=== PATIENT | female | born 1940 | race Caucasian/White ===

== ENCOUNTER 2019-05-02 10:30 | Outpatient (CLI) | payer MEDICARE, SELFPAY ==
--- NOTE | 2019-05-02 10:43 | XR_ITS ---
WS: [id number] Bilateral hips, AP and frog leg views, 05/02/2019 Clinical Data: HIP PAIN Comparison: Right hip, 06/03/2010 Findings: Both hips show no fractures or dislocations. No joint space narrowing, erosion, sclerosis or cyst for mation is seen of the hips. There are surgical clips in the soft tissues of the medial proximal left thigh. The SI joints and pubic symphysis are unremarkable. There is a large amount of fecal material in the distal colon. XR/XR hip BI 2V wo/w pel [id number] Impression: Negative bilateral hips.
== END 2019-05-02 10:31 | disposition home or self-care (01) ==
LOC: RAD 10:39
PROVIDERS: Family Provider Family Medicine; PCP Family Medicine; Visit Provider Family Medicine
DX: M25.552 Pain in left hip (principal); M25.551 Pain in right hip
CPT/HCPCS: 73521

== ENCOUNTER 2019-06-28 14:14 | Emergency (ER) | payer MEDICARE, SELFPAY ==
[2019-06-28] VITALS (7 sets, daily range): BP systolic 142–204; BP diastolic 74–90; PULSE 70–105; RESP 16–18; TEMP 36.8; O2SAT 96–98; BMI 30.9
--- NOTE | 2019-06-28 14:35 | ED_ITS ---
HPI - Psych General: Chief Complaint: Psychiatric Symptoms Stated Complaint: SI Time Seen by Provider: 06/28/19 14:15 Source: patient and family Mode of arrival: ambulatory Limitations: no limitations History of Present Illness: HPI Narrative: 78-year-old female history dementia brought by family after she had became very angry today and had made multiple suicidal statements. Patient still is upset here. She denies any worsening or improving factors. She had no previous suicide attempt in the past. Recently started on Xanax for some anxiety. complaint: suicidal ideation Onset (ago): hour(s) Relieving factors: none Exacerbating factors: none Associated symptoms: Reports depression Review of Systems Const: Denies: fever, chills, body aches or change in appetite Eyes: Denies: blurry vision or eye discomfort ENMT: Denies: throat pain or dental pain Card: Denies: chest pain Resp: Denies: shortness of breath GI: Denies: abdominal pain, nausea, vomiting or diarrhea : Denies: painful urination Musc: Denies: neck pain or back pain Skin/Breast: Denies: rash Neuro: Denies: headache Psych: Reports: depression Feliberto/Lymph: Denies: easy bruising All/Imm: Denies: hives PFSH ED PFSH: Medical History (Updated 06/28/19 @ 14:31 by Pamela Dowd MD) Atherosclerotic heart disease of [place] coronary artery with other forms of angina pectoris CAD (coronary artery disease) Carotid stenosis CHF (congestive heart failure) Chronic anemia Diabetes Gout Hypertension LEEANNA (obstructive sleep apnea) Osteoporosis Pulmonary hypertension Restless leg syndrome Surgical History (Updated 05/28/19 @ 15:15 by Edgar Abrams MD) H/O aortic valve replacement History of cataract removal with insertion of prosthetic lens History of cholecystectomy History of repair of rotator cuff Hx of CABG S/P AVR (aortic valve replacement) Stented coronary artery Social History Smoking and tobacco status: current every day smoker Alcohol intake: never Physical Exam Const: COMMON NORMALS: no apparent distress, oriented x3 and healthy appearing HENMT: COMMON NORMALS: normocephalic and head/scalp atraumatic HEAD & SCALP: normocephalic and atraumatic Eye: COMMON NORMALS: PERRL and EOMs intact bilaterally PUPIL: Yes PERRL Neck/C-Spine: COMMON NORMALS: full ROM and supple Chest: COMMONS NORMALS: inspection of chest normal and palpation of chest normal Resp: COMMON NORMALS: normal respiratory effort, no retractions, no use of accessory muscles and clear to auscultation bilaterally AUSCULTATION: clear to auscultation bilaterally Cardio: COMMON NORMALS: regular rate, regular rhythm and no murmurs RATE: regular rate RHYTHM: regular rhythm GI: COMMON NORMALS: normal to inspection, nondistended, normoactive bowel sounds, soft to palpation, non-tender and no masses PALPATION: Yes soft Extremity: COMMON NORMALS: normal to inspection and full ROM Neuro: COMMON NORMALS: oriented x3, moves all extremities and no focal motor deficits Psych: COMMON NORMALS: mental status grossly normal and cooperative THOUGHT CONTENT: Yes suicidality Skin: COMMON NORMALS: no rashes or lesions noted and no wounds GENERAL SKIN EXAM: no rashes or lesions noted MDM - Psych MDM Narrative: Medical decision making narrative: Patient presents here with suicidal ideations along with depression. Patient is medically cleared here and accepted at [facility]. Patient's been stable here and will transfer there. Lab Data: Labs: Lab Results 06/28/19 06/28/19 06/28/19 Range/Units 14:41 14:41 15:02 WBC 5.8 (4.0-10.0) 10^3/ uL RBC 4.41 (4.1-5.3) 10^6/u L Hgb 10.3 L (11.5-15.3) g/dL Hct 35.1 L (37.0-47.0) % MCV 79.6 L (81-99) fL MCH 23.4 L (28.0-34.0) pg MCHC 29.3 L (30.0-36.0) g/dL RDW 20.5 H (12.1-15.1) % Plt Count 266 (130-400) 10^3/c mm MPV 10.7 H (7.4-10.4) fL Neut % (Auto) 74.0 % Lymph % (Auto) 16.7 % Bleck[place] % (Auto) 6.3 % Eos % (Auto) 2.3 % Baso % (Auto) 0.5 % Neut # (Auto) 4.3 (1.8-7.7) 10^3/u L Lymph # (Auto) 1.0 (0.8-4.8) 10^3/u L [place] # (Auto) 0.4 (0.2-0.9) 10^3/u L Eos # (Auto) 0.1 (0.0-0.8) 10^3/u L Baso # (Auto) 0.0 (0.0-0.1) 10^3/u L Nucleated RBC % (a uto) 0 % Nucleated RBCs # 0.0 /100WBC Sodium 141 (136-145) mmol/L Potassium 3.1 L (3.5-5.1) mmol/L Chloride 99 (98-107) mmol/L Carbon Dioxide 27 (22-29) mmol/L Anion Gap 18.1 (5-19) BUN 28 H (8-23) mg/dL Creatinine 1.6 H (0.5-0.9) mg/dL Glucose 315 H (65-115) mg/dL Calculated Osmolal ity 301 H (285-295) mOsm/k g Calcium 9.8 (8.5-10.5) mg/dL Total Bilirubin 0.2 (0.15-1.2) mg/dL AST 29 (0-32) U/L ALT 16 (0-33) U/L Alkaline Phosphata se 107 H (35-105) IU/L Total Protein 8.0 (6.6-8.7) g/dL Albumin 4.3 (3.5-5.2) g/dL Globulin 3.7 (1.3-4.6) g/dL Urine Color Yellow (Yellow) Urine Appearance Clear (CLEAR) Urine pH 7.0 (5-7) Ur Specific Gravit y 1.005 (1.005-1.030) Urine Protein Neg (Negative) Urine Glucose (UA) 1+ (Normal) Urine Ketones Negative (Negative) Urine Blood Trace H (Negative) Urine Nitrate Negative (Negative) Urine Bilirubin Neg (NEGATIVE) Urine Urobilinogen Norm (Negative) mg/dL Ur Leukocyte Anushka ase Negative (Negative) Urine RBC 0-4 H (0-2) /hpf Urine WBC None (0-5) /hpf Ur Squamous Epith Cells 10-15 H (0-5) Urine Bacteria 1+ H (NONE) Urine Mucus Trace Salicylates < 0.3 L (3-10) mg/dL Urine Opiates Scre en (Negative) ng/mL Acetaminophen < 5.0 L (10-30) ug/mL Ur Barbiturates Sc reen (Negative) ng/mL Ur Phencyclidine S crn (Negative) ng/mL Ur Amphetamines Sc reen (Negative) ng/mL U Benzodiazepines Scrn (Negative) ng/mL Urine Cocaine Scre en (Negative) ng/mL U Marijuana (THC) Screen (Negative) ng/mL Ethyl Alcohol < 10 (0-10) mg/dL 06/28/19 Range/Units 15:02 WBC (4.0-10.0) 10^3/ uL RBC (4.1-5.3) 10^6/u L Hgb (11.5-15.3) g/dL Hct (37.0-47.0) % MCV (81-99) fL MCH (28.0-34.0) pg MCHC (30.0-36.0) g/dL RDW (12.1-15.1) % Plt Count (130-400) 10^3/c mm MPV (7.4-10.4) fL Neut % (Auto) % Lymph % (Auto) % [place] % (Auto) % Eos % (Auto) % Baso % (Auto) % Neut # (Auto) (1.8-7.7) 10^3/u L Lymph # (Auto) (0.8-4.8) 10^3/u L [place] # (Auto) (0.2-0.9) 10^3/u L Eos # (Auto) (0.0-0.8) 10^3/u L Baso # (Auto) (0.0-0.1) 10^3/u L Nucleated RBC % (a uto) % Nucleated RBCs # /100WBC Sodium (136-145) mmol/L Potassium (3.5-5.1) mmol/L Chloride (98-107) mmol/L Carbon Dioxide (22-29) mmol/L Anion Gap (5-19) BUN (8-23) mg/dL Creatinine (0.5-0.9) mg/dL Glucose (65-115) mg/dL Calculated Osmolal ity (285-295) mOsm/k g Calcium (8.5-10.5) mg/dL Total Bilirubin (0.15-1.2) mg/dL AST (0-32) U/L ALT (0-33) U/L Alkaline Phosphata se (35-105) IU/L Total Protein (6.6-8.7) g/dL Albumin (3.5-5.2) g/dL Globulin (1.3-4.6) g/dL Urine Color (Yellow) Urine Appearance (CLEAR) Urine pH (5-7) Ur Specific Gravit y (1.005-1.030) Urine Protein (Negative) Urine Glucose (UA) (Normal) Urine Ketones (Negative) Urine Blood (Negative) Urine Nitrate (Negative) Urine Bilirubin (NEGATIVE) Urine Urobilinogen (Negative) mg/dL Ur Leukocyte Anushka ase (Negative) Urine RBC (0-2) /hpf Urine WBC (0-5) /hpf Ur Squamous Epith Cells (0-5) Urine Bacteria (NONE) Urine Mucus Salicylates (3-10) mg/dL Urine Opiates Scre en Positive H (Negative) ng/mL Acetaminophen (10-30) ug/mL Ur Barbiturates Sc reen Negative (Negative) ng/mL Ur Phencyclidine S crn Negative (Negative) ng/mL Ur Amphetamines Sc reen Negative (Negative) ng/mL U Benzodiazepines Scrn Positive H (Negative) ng/mL Urine Cocaine Scre en Negative (Negative) ng/mL U Marijuana (THC) Screen Negative (Negative) ng/mL Ethyl Alcohol (0-10) mg/dL Discharge Plan Discharge Patient Disposition: Xfer Other Clinical Impression: Suicidal ideation Condition: Stable Referrals: Mic Dailey MD [Primary Care Provider] - Coding Level of Care Code ED Crisis Therapist for g Fwd Exam Comprehensive
[2019-06-28] MEDS: LORazepam 1 mg Tablet PO (14:44)
[2019-06-28 15:14] LABS: Basophils % 0.5 %; Eosinophils # 0.1 10^3/uL (0.0-0.8); Eosinophils % 2.3 %; Hematocrit 35.1 % (37.0-47.0); Hemoglobin 10.3 g/dL (11.5-15.3); Lymphocytes % 16.7 %; Mean Corpuscular HGB Conc 29.3 g/dL (30.0-36.0); Mean Corpuscular Hemoglobin 23.4 pg (28.0-34.0); Mean Corpuscular Volume 79.6 fL (81-99); Mean Platelet Volume 10.7 fL (7.4-10.4); Monocytes # 0.4 10^3/uL (0.2-0.9); Monocytes % 6.3 %; Neutrophils # 4.3 10^3/uL (1.8-7.7); Nucleated Red Blood Cells % 0 %; Platelet Count 266 10^3/cmm (130-400); Red Blood Count 4.41 10^6/uL (4.1-5.3); Red Cell Distribution Width 20.5 % (12.1-15.1); White Blood Count 5.8 10^3/uL (4.0-10.0)
[2019-06-28] MEDS: cloNIDine 0.1 mg Tablet PO (15:22)
[2019-06-28 15:27] LABS: Urine Appearance Clear (CLEAR); Urine Color Yellow (Yellow)
[2019-06-28 15:28] LABS: Add Urine Microscopic? YES; Bilirubin Urine Neg (NEGATIVE); Blood Urine Trace (Negative); Glucose Urine UA 1+ (Normal); Ketones Urine Negative (Negative); Leukocyte Esterase Urine Negative (Negative); Nitrate Urine Negative (Negative); Protein Urine Neg (Negative); Specific Gravity, Urine 1.005 (1.005-1.030); Urobilinogen Urine Norm (Negative)
[2019-06-28 15:30] LABS: Alanine Aminotransferase 16 U/L (0-33); Albumin Level 4.3 g/dL (3.5-5.2); Alkaline Phosphatase 107 IU/L (35-105); Anion Gap 18.1 (5-19); Aspartate Amino Transferase 29 U/L (0-32); Blood Urea Nitrogen 28 mg/dL (8-23); Calcium 9.8 mg/dL (8.5-10.5); Carbon Dioxide 27 mmol/L (22-29); Chloride 99 mmol/L (98-107); Globulin 3.7 g/dL (1.3-4.6); Glucose 315 mg/dL (65-115); Osmolality Calculated 301 mOsm/kg (285-295); Potassium 3.1 mmol/L (3.5-5.1); Sodium 141 mmol/L (136-145); Total Bilirubin 0.2 mg/dL (0.15-1.2)
[2019-06-28 15:32] LABS: Acetaminophen < 5.0 ug/mL (10-30); Alcohol Level < 10 mg/dL (0-10); Salicylate < 0.3 mg/dL (3-10)
[2019-06-28 15:38] LABS: Add Urine Culture? No; Bacteria Urine 1+; Mucus Urine TRACE; RBC Urine 0-4 /hpf (0-2)
[2019-06-28 15:47] LABS: Amphetamines Screen Urine Negative (Negative); Barbiturates Screen Urine Negative (Negative); Benzodiazepines Screen Urine Positive (Negative); Cocaine Screen Urine Negative (Negative); Opiate Screen Urine Positive (Negative); PCP Screen Urine Negative (Negative); THC Screen Urine Negative (Negative)
--- NOTE | 2019-06-28 18:00 | ECG_ITS ---
Measurements Intervals [place] Rate: 75 P: 107 TN: 176 QRS: 20 QRSD: 92 T: 103 QT: 420 QTc: [address] DEVIATION AND MODERATE T-WAVE ABNORMALITY, CONSIDER LATERAL ISCHEMIA [-0.1+ mV T WAVE IN I/aVL/V5/V6] Compared to ECG 11/24/2018 23:20:17 T-wave abnormality now present Possible ischemia now present Electronically Signed On 06-28-2019 20:23:14 CDT by Rose Rios M.D. [id number]
--- NOTE | 2019-06-28 18:11 | XRR_ITS ---
PROCEDURE INFORMATION: Exam: XR Chest, 1 View Exam date and time: 06/28/2019 6:24 PM Age: 78 years old Clinical indication: Screening exam; Other screening; Prior surgery; Surgery date: 6+ months; Surgery type: Gb, cabg; Additional info: Psych TECHNIQUE: Imaging protocol: XR of the chest Views: 1 view. COMPARISON: CR Chest 1 [place] [id number] 11/24/2018 4:26 PM FINDINGS: Lungs: Parenchymal scarring noted in the lingula and right lower lobe. No consolidation. Pleural space: No pleural effusion. No pneumothorax. Heart/Mediastinum: Previous CABG. Bones/joints: Previous median sternotomy. Postsurgical changes of the right humerus. XR/XR chest 1V portable [id number] IMPRESSION: No acute findings.
--- NOTE | 2019-06-28 19:16 | PC.NURSE ---
Patient is sleeping in bed.
[2019-06-28] MEDS: sodium chloride 0.9% 1,000 ML 999 ML IV (21:20)
[2019-06-28] MEDS: hyDRALAzine 20 mg/mL INJ 1 mL 10 MG IVP (21:20)
[2019-06-28] MEDS: insulin regular-human 100 units/1 mL 5 UNIT IVP (21:22)
--- NOTE | 2019-06-28 22:35 | PC.NURSE ---
Ems here for transfer to [place], report given to ems crew. Patient left in stable condition in care of EMS.
[2019-06-29 01:32] LABS: Glucose Point of Care 337 mg/dL (70-110)
== END 2019-06-28 22:43 | disposition other institution (70) ==
LOC: ER 14:40
PROVIDERS: Emergency Provider Emergency Medicine; Family Provider Family Medicine; PCP Family Medicine
DX: R45.851 Suicidal ideations (principal); I25.118 Atherosclerotic heart disease of native coronary artery with other forms of angina pectoris; I11.0 Hypertensive heart disease with heart failure; I50.9 Heart failure, unspecified; E11.9 Type 2 diabetes mellitus without complications; D64.9 Anemia, unspecified; I27.20 Pulmonary hypertension, unspecified; Z95.1 Presence of aortocoronary bypass graft; Z95.2 Presence of prosthetic heart valve; F17.200 Nicotine dependence, unspecified, uncomplicated
CPT/HCPCS: 12345; 36415; 36416; 71045; 80053; 80306; 80307; 81001; 82962; 85025; 93005; 96360; 96372; 96374; 96375; 99285; J0360; J1815; J7030

== ENCOUNTER 2019-09-09 09:09 | Emergency (ER) | payer MEDICARE, SELFPAY ==
[2019-09-09] VITALS (7 sets, daily range): BP systolic 144–200; BP diastolic 69–100; PULSE 70–73; RESP 16–30; TEMP 36.6; O2SAT 93–100; BMI 31.8
[2019-09-09] MEDS: ondansetron 2 mg/ML SDV 2 mL 4 MG IVP (09:30)
--- NOTE | 2019-09-09 09:30 | XR_ITS ---
WS: [id number] XR chest 1V portable [id number] REASON FOR EXAM: dyspnea/cough FINDINGS: Bilateral pleural effusion is now seen. There is also fluid seen in the minor fissure on th e right. The heart is large. There is coronary bypass changes seen. There is interstitial and alveolar fluid seen bilaterally. XR/XR chest 1V portable [id number] IMPRESSION: Congestive heart failure.
--- NOTE | 2019-09-09 09:30 | ECG_ITS ---
[facility] ED Test Date: 2019-09-09 Pat Name: Karolina Combs Department: Room: Gender: 1 Corporate Safety Coordinator: : 1940 Requested By: Alden Anne Order Number: [id number] K[place] MD: Edgar Abrams M.D. Measurements Intervals [place] Rate: 69 P: [place]: 0 QRS: 25 QRSD: 86 T: 96 QT: 367 QTc: 395 Interpretive Statements Possible ATRIAL FIBRILLATION MODERATE T-WAVE ABNORMALITY, CONSIDER ANTERIOR ISCHEMIA [-0.1+ mV T WAVE IN V3/V4] Compared to ECG 06/28/2019 18:14:02 Sinus rhythm no longer present T-wave abnormality still present Possible ischemia still present Electronically Signed On 09-10-2019 19:14:17 CDT by Edgar Abrams M.D. [id number]
--- NOTE | 2019-09-09 09:33 | W.ED.SOB ---
HPI - SOB/Dyspnea General: Chief Complaint: Fever Stated Complaint: SOB Time Seen by Provider: 09/09/19 09:30 History of Present Illness: HPI Narrative: 79-year-old female presents emergency room with shortness of breath chest tightness she has had this for the last 2 days. She has multiple family members who have tested positive for COVID-19 she lives with 1 of them. They have not been wearing masks all the time she herself has not been confirmed by testing yet we are presuming based on her history she does indeed have COVID-19. She is not had any fever she has had increased chest congestion unfortunately she has multiple comorbid factors including diabetes mellitus coronary artery disease congestive heart failure aortic stenosis and EF of 45% interstitial pulmonary fibrosis hyperlipidemia hypertension gout and osteoporosis of significant Cerner concern is her pulmonary hypertension and interstitial fibrosis. MD elicited complaint: shortness of breath Pertinent past history: COPD, congestive heart failure and other (Pulmonary interstitial fibrosis) Onset (ago): day(s) (2) Timing: constant Severity: moderate Exacerbating factors: exertion, movement and coughing Relieving factors: oxygen and rest Known history of: COPD, congestive heart failure and other (Pulmonary fibrosis and pulmonary hypertension) Associated symptoms: Reports chest congestion, chest pain, cough, nausea and orthopnea; Deny fever(s) Treatment prior to arrival: none Review of Systems Const: Denies: fever(s), chills, body aches, change in appetite, fatigue or malaise ENMT: Denies: throat pain, ear or mastoid pain, nasal discharge or nasal congestion Card: Reports: chest pain and orthopnea Resp: Reports: chest congestion GI: Reports: nausea : Denies: flank pain, difficulty voiding, dysuria, urinary frequency or urinary urgency Skin/Breast: Denies: rash or pruritus PFS ED PFSH: Medical History (Updated 09/09/19 @ 11:12 by Alden Pimentel DO) Atherosclerotic heart disease of [place] coronary artery with other forms of angina pectoris CAD (coronary artery disease) Carotid stenosis CHF (congestive heart failure) Chronic anemia Diabetes Gout Hypertension LEEANNA (obstructive sleep apnea) Osteoporosis Pulmonary hypertension Restless leg syndrome Surgical History (Updated 05/28/19 @ 15:15 by Edgar Abrams MD) H/O aortic valve replacement History of cataract removal with insertion of prosthetic lens History of cholecystectomy History of repair of rotator cuff Hx of CABG S/P AVR (aortic valve replacement) Stented coronary artery Social History Smoking and tobacco status: former smoker Alcohol intake: never Physical Exam Const: COMMON NORMALS: no acute distress GENERAL APPEARANCE: cooperative and comfortable ORIENTATION/CONSCIOUSNESS: Yes awake, Yes oriented to person, Yes oriented to place and Yes oriented to time HENMT: COMMON NORMALS: normocephalic, atraumatic, hearing grossly normal bilaterally, external ears normal, EAC's normal, TM's normal bilaterally, Normal nasal mucous membranes and turbinates present, moist oral mucous membranes and oropharynx normal HEAD & SCALP: normocephalic and atraumatic NOSE: Normal nasal mucous membranes and turbinates present EXTERNAL EAR: Yes external ears normal EXTERNAL AUDITORY CANAL: EAC's normal TYMPANIC MEMBRANE: TM's normal bilaterally Eye: COMMON NORMALS: Equal, round and reactive pupils present, EOMs intact bilaterally, conjunctivae normal and no scleral icterus CONJUNCTIVA: Yes conjunctivae normal PUPIL: Yes Equal, round and reactive pupils present Neck/C-Spine: COMMON NORMALS: full ROM, no lymphadenopathy, supple and no JVD Lymph: LYMPHATIC: no lymphadenopathy noted and no lymphedema noted Resp: COMMON NORMALS: normal respiratory effort EFFORT & INSPECTION: Yes tachypneic AUSCULTATION: rales bilateral at the base, wheezes expiratory wheezes and diminished lung sounds on the right and on the left Cardio: COMMON NORMALS: no JVD, regular rate, regular rhythm and No murmurs present (Cardio) RATE: regular rate RHYTHM: regular rhythm GI: COMMON NORMALS: Soft to palpation and No hepatosplenomegaly present AUSCULTATION: Yes normoactive bowel sounds PALPATION: Yes Soft to palpation, No Tenderness to palpation present (GI), No Guarding due to palpation present (GI) and Yes No hepatosplenomegaly present Extremity: COMMON NORMALS: normal to inspection, capillary refill normal, no clubbing, cyanosis or edema, no calf tenderness and no pedal edema Neuro: SENSORIUM/ORIENTATION: Yes oriented to person, Yes oriented to place and Yes oriented to time Skin: COMMON NORMALS: no rashes or lesions noted GENERAL SKIN EXAM: no rashes or lesions noted Course Vital Signs: Vital signs: Vital Signs Temperature 97.8 F 06/16/20 10:27 Pulse Rate 70 09/09/19 13:20 Respiratory Rate 24 H 09/09/19 13:20 Blood Pressure 189/89 09/09/19 13:20 Pulse Oximetry 100 09/09/19 13:20 MDM - SOB/Dyspnea MDM Narrative: Medical decision making narrative: Patient be transferred ER to ER to [facility]. She most certainly has COVID at this point she was living with 2 known positives without taking any significant precautions. Reviewing her chest x-ray it looks like she already has advanced disease and I think over the next several days she will decline precipitously. While we would be able to provide ventilation support at our facility there are specialized treatments that are not available here such as her domes of urine convalescent plasma therapy. In addition [facility] has a COVID unit that is more prepared to manage this patient on a long-term basis given her multiple comorbid conditions including congestive heart failure pulmonary fibrosis and pulmonary hypertension I think her course will be exceedingly difficult and complicated and she would benefit from a tertiary care center. Discussed with Dr. Reyna and we both agree. Lab Data: Attestation: I reviewed the patient's lab results. Labs: Lab Results 09/09/19 09/09/19 09/09/19 Range/Units 09:20 09:35 09:35 WBC 9.0 (4.0-10.0) 10^3/ uL RBC 3.19 L (4.1-5.3) 10^6/u L Hgb 8.0 L (11.5-15.3) g/dL Hct 27.2 L (37.0-47.0) % MCV 85.3 (81-99) fL MCH 25.1 L (28.0-34.0) pg MCHC 29.4 L (30.0-36.0) g/dL RDW 18.6 H (12.1-15.1) % Plt Count 362 (130-400) 10^3/c mm MPV 10.4 (7.4-10.4) fL Neut % (Auto) 80.9 % Lymph % (Auto) 8.9 % [place] % (Auto) 8.1 % Eos % (Auto) 1.2 % Baso % (Auto) 0.6 % Neut # (Auto) 7.3 (1.8-7.7) 10^3/u L Lymph # (Auto) 0.8 (0.8-4.8) 10^3/u L [place] # (Auto) 0.7 (0.2-0.9) 10^3/u L Eos # (Auto) 0.1 (0.0-0.8) 10^3/u L Baso # (Auto) 0.1 (0.0-0.1) 10^3/u L Nucleated RBC % (a uto) 0 % Nucleated RBCs # 0.0 /100WBC PT 15.10 H (10.5-13.3) SECO NDS INR 1.15 (0.8-1.2) APTT 32.9 (23.9-36.7) SECO NDS Fibrinogen 609 H (184-529) mg/dL D-Dimer 0.85 H (0-0.59) ug/mIFE U Specimen Type Arterial Sample Site Radial, left ABG pH 7.53 H (7.35-7.45) ABG pCO2 40.7 (35-45) mmHg ABG pO2 51.7 L (80.0-100.0) mmH g ABG HCO3 33.9 H (22-26) mmol/L ABG O2 Saturation 86.3 ABG Base Excess 10.2 H (-2.0-2.0) mmol/ L Ascencion Test Pos A-a O2 Gradient 48.2 H (5-10) mmHg Hematocrit 25.8 L (37-47) % Hgb O2 Saturation 84.0 L (95-100) % Carboxyhemoglobin 1.8 (0.4-20.1) %THgb Methemoglobin 1.0 (0.4-1.5) % Total Hemoglobin 8.4 L (12-16) g/dL Sodium 142.0 (131-143) mmol/L Potassium 3.1 L (3.5-5.0) mmol/L Glucose 93.0 (70-115) mg/dL Ionized Calcium 1.1 (1.1-1.4) mmol/L O2 Delivery Device Room air FiO2 21.0 % Environmental Projects Advisor ID cak Chloride (98-107) mmol/L Carbon Dioxide (22-29) mmol/L Anion Gap (5-19) BUN (8-23) mg/dL Creatinine (0.5-0.9) mg/dL Calculated Osmolal ity (285-295) mOsm/k g Lactic Acid (0.5-2.2) mmol/L Lactate (0.5-2.2) mmol/L Calcium (8.5-10.5) mg/dL Magnesium (1.7-2.3) mg/dL Ferritin (15-150) ng/mL Total Bilirubin (0.15-1.2) mg/dL AST (0-32) U/L ALT (0-33) U/L Alkaline Phosphata se (35-105) IU/L Lactate Dehydrogen ase (135-214) U/L Creatine Kinase (26-192) U/L C-Reactive Protein (0.0-4.9) mg/L NT-Pro-B Natriuret Pep (0-450) pg/mL Total Protein (6.6-8.7) g/dL Albumin (3.5-5.2) g/dL Globulin (1.3-4.6) g/dL Urine Color (Yellow) Urine Appearance (CLEAR) Urine pH (5-7) Ur Specific Gravit y (1.005-1.030) Urine Protein (Negative) Urine Glucose (UA) (Normal) Urine Ketones (Negative) Urine Blood (Negative) Urine Nitrate (Negative) Urine Bilirubin (NEGATIVE) Urine Urobilinogen (Negative) mg/dL Ur Leukocyte Anushka ase (Negative) Urine RBC (0-2) /hpf Urine WBC (0-5) /hpf Ur Squamous Epith Cells (0-5) Urine Bacteria (NONE) Hyaline Casts Nasal/Oral COVID-1 9 PCR Influenza Type A A g (Negative) Influenza Type B A g (Negative) 09/09/19 09/09/19 09/09/19 Range/Units 09:35 09:35 09:54 WBC (4.0-10.0) 10^3/ uL RBC (4.1-5.3) 10^6/u L Hgb (11.5-15.3) g/dL Hct (37.0-47.0) % MCV (81-99) fL MCH (28.0-34.0) pg MCHC (30.0-36.0) g/dL RDW (12.1-15.1) % Plt Count (130-400) 10^3/c mm MPV (7.4-10.4) fL Neut % (Auto) % Lymph % (Auto) % [place] % (Auto) % Eos % (Auto) % Baso % (Auto) % Neut # (Auto) (1.8-7.7) 10^3/u L Lymph # (Auto) (0.8-4.8) 10^3/u L [place] # (Auto) (0.2-0.9) 10^3/u L Eos # (Auto) (0.0-0.8) 10^3/u L Baso # (Auto) (0.0-0.1) 10^3/u L Nucleated RBC % (a uto) % Nucleated RBCs # /100WBC PT (10.5-13.3) SECO NDS INR (0.8-1.2) APTT (23.9-36.7) SECO NDS Fibrinogen (184-529) mg/dL D-Dimer (0-0.59) ug/mIFE U Specimen Type Sample Site ABG pH (7.35-7.45) ABG pCO2 (35-45) mmHg ABG pO2 (80.0-100.0) mmH g ABG HCO3 (22-26) mmol/L ABG O2 Saturation ABG Base Excess (-2.0-2.0) mmol/ L Ascencion Test A-a O2 Gradient (5-10) mmHg Hematocrit (37-47) % Hgb O2 Saturation (95-100) % Carboxyhemoglobin (0.4-20.1) %THgb Methemoglobin (0.4-1.5) % Total Hemoglobin (12-16) g/dL Sodium 142 (131-143) mmol/L Potassium 3.4 L (3.5-5.0) mmol/L Glucose 99 (70-115) mg/dL Ionized Calcium (1.1-1.4) mmol/L O2 Delivery Device FiO2 % Environmental Projects Advisor ID Chloride 97 L (98-107) mmol/L Carbon Dioxide 33 H (22-29) mmol/L Anion Gap 15.4 (5-19) BUN 25 H (8-23) mg/dL Creatinine 1.3 H (0.5-0.9) mg/dL Calculated Osmolal ity 291 (285-295) mOsm/k g Lactic Acid 0.9 (0.5-2.2) mmol/L Lactate 0.9 (0.5-2.2) mmol/L Calcium 9.4 (8.5-10.5) mg/dL Magnesium 2.5 H (1.7-2.3) mg/dL Ferritin 95 (15-150) ng/mL Total Bilirubin 0.3 (0.15-1.2) mg/dL AST 24 (0-32) U/L ALT 14 (0-33) U/L Alkaline Phosphata se 90 (35-105) IU/L Lactate Dehydrogen ase 314 H (135-214) U/L Creatine Kinase 59 (26-192) U/L C-Reactive Protein 52.7 H (0.0-4.9) mg/L NT-Pro-B Natriuret Pep 8011 H (0-450) pg/mL Total Protein 6.9 (6.6-8.7) g/dL Albumin 3.8 (3.5-5.2) g/dL Globulin 3.1 (1.3-4.6) g/dL Urine Color (Yellow) Urine Appearance (CLEAR) Urine pH (5-7) Ur Specific Gravit y (1.005-1.030) Urine Protein (Negative) Urine Glucose (UA) (Normal) Urine Ketones (Negative) Urine Blood (Negative) Urine Nitrate (Negative) Urine Bilirubin (NEGATIVE) Urine Urobilinogen (Negative) mg/dL Ur Leukocyte Anushka ase (Negative) Urine RBC (0-2) /hpf Urine WBC (0-5) /hpf Ur Squamous Epith Cells (0-5) Urine Bacteria (NONE) Hyaline Casts Nasal/Oral COVID-1 9 PCR P Influenza Type A A g (Negative) Influenza Type B A g (Negative) 09/09/19 09/09/19 Range/Units 09:54 11:32 WBC (4.0-10.0) 10^3/ uL RBC (4.1-5.3) 10^6/u L Hgb (11.5-15.3) g/dL Hct (37.0-47.0) % MCV (81-99) fL MCH (28.0-34.0) pg MCHC (30.0-36.0) g/dL RDW (12.1-15.1) % Plt Count (130-400) 10^3/c mm MPV (7.4-10.4) fL Neut % (Auto) % Lymph % (Auto) % [place] % (Auto) % Eos % (Auto) % Baso % (Auto) % Neut # (Auto) (1.8-7.7) 10^3/u L Lymph # (Auto) (0.8-4.8) 10^3/u L [place] # (Auto) (0.2-0.9) 10^3/u L Eos # (Auto) (0.0-0.8) 10^3/u L Baso # (Auto) (0.0-0.1) 10^3/u L Nucleated RBC % (a uto) % Nucleated RBCs # /100WBC PT (10.5-13.3) SECO NDS INR (0.8-1.2) APTT (23.9-36.7) SECO NDS Fibrinogen (184-529) mg/dL D-Dimer (0-0.59) ug/mIFE U Specimen Type Sample Site ABG pH (7.35-7.45) ABG pCO2 (35-45) mmHg ABG pO2 (80.0-100.0) mmH g ABG HCO3 (22-26) mmol/L ABG O2 Saturation ABG Base Excess (-2.0-2.0) mmol/ L Ascencion Test A-a O2 Gradient (5-10) mmHg Hematocrit (37-47) % Hgb O2 Saturation (95-100) % Carboxyhemoglobin (0.4-20.1) %THgb Methemoglobin (0.4-1.5) % Total Hemoglobin (12-16) g/dL Sodium (131-143) mmol/L Potassium (3.5-5.0) mmol/L Glucose (70-115) mg/dL Ionized Calcium (1.1-1.4) mmol/L O2 Delivery Device FiO2 % Environmental Projects Advisor ID Chloride (98-107) mmol/L Carbon Dioxide (22-29) mmol/L Anion Gap (5-19) BUN (8-23) mg/dL Creatinine (0.5-0.9) mg/dL Calculated Osmolal ity (285-295) mOsm/k g Lactic Acid (0.5-2.2) mmol/L Lactate (0.5-2.2) mmol/L Calcium (8.5-10.5) mg/dL Magnesium (1.7-2.3) mg/dL Ferritin (15-150) ng/mL Total Bilirubin (0.15-1.2) mg/dL AST (0-32) U/L ALT (0-33) U/L Alkaline Phosphata se (35-105) IU/L Lactate Dehydrogen ase (135-214) U/L Creatine Kinase (26-192) U/L C-Reactive Protein (0.0-4.9) mg/L NT-Pro-B Natriuret Pep (0-450) pg/mL Total Protein (6.6-8.7) g/dL Albumin (3.5-5.2) g/dL Globulin (1.3-4.6) g/dL Urine Color Yellow (Yellow) Urine Appearance Clear (CLEAR) Urine pH 6 (5-7) Ur Specific Gravit y 1.010 (1.005-1.030) Urine Protein 1+ H (Negative) Urine Glucose (UA) Norm (Normal) Urine Ketones Negative (Negative) Urine Blood 2+ H (Negative) Urine Nitrate Negative (Negative) Urine Bilirubin Neg (NEGATIVE) Urine Urobilinogen Norm (Negative) mg/dL Ur Leukocyte Anushka ase Negative (Negative) Urine RBC 0-4 H (0-2) /hpf Urine WBC 0-4 H (0-5) /hpf Ur Squamous Epith Cells 5-10 H (0-5) Urine Bacteria Trace (NONE) Hyaline Casts 0-4 H Nasal/Oral COVID-1 9 PCR Influenza Type A A g Negative (Negative) Influenza Type B A g Negative (Negative) Imaging Data^: CXR: Attestation: I personally reviewed and interpreted this imaging study as follows: My impression: interstiital edema secondary to covid based on [facility] clinical setting Radiologist's impression: XR chest 1V portable [id number] REASON FOR EXAM: dyspnea/cough FINDINGS: Bilateral pleural effusion is now seen. There is also fluid seen in the minor fissure on the right. The heart is large. There is coronary bypass changes seen. There is interstitial and alveolar fluid seen bilaterally. XR/XR chest 1V portable [id number] IMPRESSION: Congestive heart failure. Dictated By:Elder Kyle DO Discharge Plan Discharge Patient Disposition: Transfer to ED Clinical Impression: COVID-19 virus infection, Pulmonary hypertension, Congestive heart failure, Pulmonary interstitial fibrosis, Anemia Condition: Stable Prescriptions: No Action clopidogrel [Plavix] 75 mg tablet 75 mg PO DAILY RF: 0 isosorbide mononitrate 120 mg tablet extended release 24 hr 120 mg PO BID RF: 0 furosemide [Lasix] 40 mg tablet 40 mg PO QAM RF: 0 ondansetron HCl [Zofran] 4 mg tablet 4 mg PO Q6H PRN (Reason: Nausea) RF: 0 aspirin [Adult Low Dose Aspirin] 81 mg tablet,delayed release (DR/EC) 81 mg PO DAILY RF: 0 ferrous sulfate 325 mg (65 mg iron) tablet,delayed release (DR/EC) 325 mg PO DAILY RF: 0 quetiapine [Seroquel] 50 mg tablet 100 mg PO BEDTIME RF: 0 donepezil 10 mg tablet 10 mg PO DAILY RF: 0 docusate sodium [Stool Softener] 100 mg capsule 100 mg PO DAILY RF: 0 nitroglycerin [Nitrostat] 0.4 mg tablet, sublingual 0.4 mg SUBLINGUAL Q5M PRN (Reason: Chest Pain) Qty: 90 RF: 0 Humalog Mix 75-25(U-100)Insuln 100 unit/mL (75-25) suspension 20 unit SUBCUT BID RF: 0 amlodipine 5 mg Tablet 5 mg PO DAILY RF: 0 zaleplon 10 mg Capsule 10 mg PO BEDTIME RF: 0 metoprolol succinate 25 mg Tablet Extended Release 24 Hr 25 mg PO DAILY RF: 0 sertraline 50 mg Tablet 50 mg PO DAILY RF: 0 Referrals: Mic Dailey MD [Primary Care Provider] - Discharge Date/Time: 09/09/19 13:22 Coding Level of Care Code ED Public Opinion Survey Taker for Ridge[facility] Fwd Exam Comprehensive
[2019-09-09 09:52] LABS: Basophils # 0.1 10^3/uL (0.0-0.1); Basophils % 0.6 %; Eosinophils # 0.1 10^3/uL (0.0-0.8); Eosinophils % 1.2 %; Hematocrit 27.2 % (37.0-47.0); Lymphocytes # 0.8 10^3/uL (0.8-4.8); Lymphocytes % 8.9 %; Mean Corpuscular HGB Conc 29.4 g/dL (30.0-36.0); Mean Corpuscular Hemoglobin 25.1 pg (28.0-34.0); Mean Corpuscular Volume 85.3 fL (81-99); Mean Platelet Volume 10.4 fL (7.4-10.4); Monocytes # 0.7 10^3/uL (0.2-0.9); Monocytes % 8.1 %; Neutrophils # 7.3 10^3/uL (1.8-7.7); Neutrophils % 80.9 %; Nucleated Red Blood Cells % 0 %; Platelet Count 362 10^3/cmm (130-400); Red Blood Count 3.19 10^6/uL (4.1-5.3); Red Cell Distribution Width 18.6 % (12.1-15.1)
[2019-09-09] MEDS: LORazepam 2 mg/mL INJ 1 mL 1 MG IVP (09:56)
[2019-09-09 10:03] LABS: Lactate (Lactic Acid level) 0.9 mmol/L (0.5-2.2); Lactic Sepsis W/Reflex 0.9 mmol/L (0.5-2.2)
[2019-09-09 10:11] LABS: INR 1.15 (0.8-1.2)
[2019-09-09 10:12] LABS: Partial Thromboplastin Time 32.9 SECONDS (23.9-36.7)
[2019-09-09 10:14] LABS: Alanine Aminotransferase 14 U/L (0-33); Albumin Level 3.8 g/dL (3.5-5.2); Alkaline Phosphatase 90 IU/L (35-105); Anion Gap 15.4 (5-19); Aspartate Amino Transferase 24 U/L (0-32); Blood Urea Nitrogen 25 mg/dL (8-23); Calcium 9.4 mg/dL (8.5-10.5); Carbon Dioxide 33 mmol/L (22-29); Chloride 97 mmol/L (98-107); Creatine Phosphokinase 59 U/L (26-192); D Dimer 0.85 ug/mIFEU (0-0.59); Globulin 3.1 g/dL (1.3-4.6); Glucose 99 mg/dL (65-115); Lactate Dehydrogenase 314 U/L (135-214); Magnesium 2.5 mg/dL (1.7-2.3); NT Pro B Type Natriuretic Pept 8011 pg/mL (0-450); Osmolality Calculated 291 mOsm/kg (285-295); Potassium 3.4 mmol/L (3.5-5.1); Sodium 142 mmol/L (136-145); Total Bilirubin 0.3 mg/dL (0.15-1.2); Total Protein 6.9 g/dL (6.6-8.7)
[2019-09-09 10:21] LABS: ABG PCO2 40.7 mmHg (35-45); ABG PH Result 7.53 (7.35-7.45); Alveolar-Arterial Oxygen Gradi 48.2 mmHg (5-10); Arterial Blood Gas Hematocrit 25.8 % (37-47); Base Excess ABG 10.2 mmol/L (-2.0-2.0); Blood Gas Allen Test Pos; Blood Gas Sample Site Radial, left; Blood Gas Sample Type Arterial; Carboxyhemoglobin 1.8 %THgb (0.4-20.1); HCO3 ABG 33.9 mmol/L (22-26); Ionized Calcium Level - ABG 1.1 mmol/L (1.1-1.4); Oxygen Device ROOM AIR; Oxygen Saturation ABG 86.3; PO2 ABG 51.7 mmHg (80.0-100.0); Potassium Level - ABG 3.1 mmol/L (3.5-5.0); Total Hemoglobin 8.4 g/dL (12-16)
[2019-09-09 10:40] LABS: C Reactive Protein 52.7 mg/L (0.0-4.9); Ferritin 95 ng/mL (15-150)
[2019-09-09 10:49] LABS: Influenza A by IFA Negative (Negative); Influenza B by IFA Negative (Negative)
[2019-09-09 10:52] LABS: Fibrinogen 609 mg/dL (184-529)
--- NOTE | 2019-09-09 11:12 | PC.NURSE ---
Read and agree with pt assessments
--- NOTE | 2019-09-09 11:36 | PC.NURSE ---
Patient assisted to bedside commode. POX dropped to 83%. Patient assisted back to bed. POX 97% while resting.
[2019-09-09 11:47] LABS: Add Urine Microscopic? YES; Bilirubin Urine Neg (NEGATIVE); Blood Urine 2+ (Negative); Glucose Urine UA Norm (Normal); Ketones Urine Negative (Negative); Leukocyte Esterase Urine Negative (Negative); Nitrate Urine Negative (Negative); Protein Urine 1+ (Negative); Urine Appearance Clear (CLEAR); Urine Color Yellow (Yellow); Urobilinogen Urine Norm (Negative); pH Urine 6 (5-7)
[2019-09-09 11:57] LABS: Add Urine Culture? No; Bacteria Urine TRACE; Hyaline Casts Urine 0-4; RBC Urine 0-4 /hpf (0-2); WBC Urine 0-4 /hpf (0-5)
[2019-09-10 20:19] LABS: Coronavirus Lab Test PTC P
== END 2019-09-09 13:22 ==
PROVIDERS: Emergency Provider Family Medicine; PCP Family Medicine
DX: U07.1 COVID-19 (principal); I27.20 Pulmonary hypertension, unspecified; J84.10 Pulmonary fibrosis, unspecified; D64.9 Anemia, unspecified; Z79.02 Long term (current) use of antithrombotics/antiplatelets; Z79.82 Long term (current) use of aspirin; Z79.4 Long term (current) use of insulin; I11.0 Hypertensive heart disease with heart failure; I50.9 Heart failure, unspecified; I25.10 Atherosclerotic heart disease of native coronary artery without angina pectoris; E11.9 Type 2 diabetes mellitus without complications; Z95.1 Presence of aortocoronary bypass graft; Z87.891 Personal history of nicotine dependence
CPT/HCPCS: 12345; 36600; 71045; 80051; 80053; 81001; 82550; 82728; 82810; 83605; 83615; 83735; 83880; 83986; 85025; 85378; 85384; 85610; 85730; 86140; 87040; 87635; 87804; 93005; 96374; 96375; 99284; 99285; J2060; J2405; J3535

== ENCOUNTER 2019-09-25 17:17 | Emergency (ER) | payer MEDICARE, SELFPAY ==
[2019-09-25] VITALS (8 sets, daily range): BP systolic 176–200; BP diastolic 77–93; PULSE 79–85; RESP 20–36; TEMP 37.4; O2SAT 95–98; BMI 22.6
--- NOTE | 2019-09-25 17:35 | W.ED.SOB ---
HPI - SOB/Dyspnea General: Chief Complaint: Shortness of Breath/Dyspnea Stated Complaint: DIFFICULTY BREATHING Time Seen by Provider: 09/25/19 17:34 Source: patient and EMS Mode of arrival: EMS History of Present Illness: HPI Narrative: Karolina is a nice 79-year-old female who comes in complaining of shortness of breath. She states that shortness of breath is been going on for the past 1 to 2 days. She denies any chest pain. She does complain of orthopnea and dyspnea on exertion. She has had some leg swelling and wheezing present. Of note the patient was discharged within the last month for a COVID-19 infection out of [facility] in [place]. Patient denies any fevers, sore throat or generalized malaise. The patient is a limited historian secondary to cooperation. Associated symptoms: Reports orthopnea; Deny abdominal pain, chest congestion, chest pain, diaphoresis, dizziness, extremity pain, fever(s), hemoptysis, lightheadedness, nausea, palpitations, syncope or vomiting Review of Systems Const: Denies: fever(s), chills, body aches, fatigue, malaise or diaphoresis Eyes: Denies: change in vision, blurry vision, blind spots, photophobia, eye discharge or eye redness ENMT: Denies: throat pain, odynophagia, hoarseness, swelling of lips/tongue, oral sores, ear or mastoid pain, ear discharge, change in hearing or nasal discharge Card: Reports: dyspnea on exertion and orthopnea; Denies: chest pain, palpitations, irregular heart rhythm, edema, lightheadedness, syncope or pre-syncope Resp: Reports: dyspnea; Denies: productive cough, non-productive cough, wheezing, hemoptysis or chest congestion GI: Denies: abdominal pain, nausea, vomiting, hematemesis, coffee ground emesis, heartburn, diarrhea, constipation, GI cramping, hematochezia or melena : Denies: flank pain, dysuria, urinary frequency, urinary urgency or hematuria Musc: Denies: neck pain, back pain, extremity pain, extremity swelling, joint pain, joint swelling, joint redness, joint warmth or joint stiffness Skin/Breast: Denies: rash, pruritus, erythema, skin tenderness or jaundice Neuro: Denies: headache(s), numbness in extremities, weakness in extremities, sensory changes, lack of coordination, difficulty walking, dizziness, vertigo, confusion, Slurred speech present or seizure-like activity Feliberto/Lymph: Denies: easy bruising, easy bleeding, petechiae, purpura or enlarged lymph nodes All/Imm: Denies: urticaria, throat swelling, tongue swelling, facial swelling or acute wheezing PFSH ED PFSH: Medical History Atherosclerotic heart disease of [place] coronary artery with other forms of angina pectoris CAD (coronary artery disease) Carotid stenosis CHF (congestive heart failure) Chronic anemia Diabetes Gout Hypertension LEEANNA (obstructive sleep apnea) Osteoporosis Pulmonary hypertension Restless leg syndrome Surgical History H/O aortic valve replacement History of cataract removal with insertion of prosthetic lens History of cholecystectomy History of repair of rotator cuff Hx of CABG S/P AVR (aortic valve replacement) Stented coronary artery Social History Smoking and tobacco status: former smoker Alcohol intake: never Physical Exam Const: COMMON NORMALS: no acute distress, patient oriented x3, no limitations, healthy appearing and well nourished GENERAL APPEARANCE: cooperative, well kempt and well developed HENMT: COMMON NORMALS: normocephalic, atraumatic, external ears normal, EAC's normal and Normal external nose present HEAD & SCALP: normal to inspection, normocephalic and atraumatic FACE & SINUS: normal facial exam and face symmetric NOSE: Normal external nose present and Normal nares present EXTERNAL EAR: Yes external ears normal EXTERNAL AUDITORY CANAL: EAC's normal MOUTH: Normal oral and palatal mucosa present, lip normal and tongue normal Eye: COMMON NORMALS: Equal, round and reactive pupils present and conjunctivae normal GENERAL EYE: appearance normal, both eyes and all related structures ALIGNMENT: Yes alignment normal PERIORBITAL: periorbital findings normal EYELID: eyelids normal CONJUNCTIVA: Yes conjunctivae normal SCLERA: sclerae normal PUPIL: Yes Equal, round and reactive pupils present Neck/C-Spine: COMMON NORMALS: full ROM, no lymphadenopathy, supple, no meningeal signs and no JVD GENERAL: Yes normal visual inspection and Yes trachea midline Chest: COMMONS NORMALS: normal inspection of the chest and normal palpation of entire chest wall Resp: COMMON NORMALS: normal respiratory effort, No retractions and No use of accessory muscles EFFORT & INSPECTION: Yes able to speak in complete sentences and Yes symmetric chest movement AUSCULTATION: no crackles, rales, no rhonchi and wheezes Cardio: COMMON NORMALS: no JVD, regular rate, regular rhythm, S1 normal heart sound present and S2 normal heart sound present RATE: regular rate RHYTHM: regular rhythm HEART SOUNDS: S1 normal heart sound present, S2 normal heart sound present, no click, no gallops, no murmurs, no rubs and abnormal split S2 GI: COMMON NORMALS: Soft to palpation and No hepatosplenomegaly present PALPATION: Yes Soft to palpation, No Tenderness to palpation present (GI), No Guarding due to palpation present (GI), No Rigid due to palpation, Yes No hepatosplenomegaly present, No Hernia present, No Palpable mass present and No Pulsatile mass present : COMMON NORMALS: Yes no CVA tenderness BLADDER/KIDNEY EXAM: Yes no CVA tenderness EXTERNAL FEMALE EXAM: No Hernia present Back/Pelvis: COMMON NORMALS: no CVA tenderness, thoracic and lumbar spine normal to inspection, no thoracic nor lumbar tenderness and thoraco-lumbar ROM normal Extremity: COMMON NORMALS: normal to inspection, full ROM, capillary refill normal, no joint enlargement, no clubbing, cyanosis or edema and no calf tenderness Neuro: COMMON NORMALS: patient oriented x3, CN's II-XII intact bilaterally, moves all extremities, no focal motor deficits and no sensory deficits noted MENINGEAL SIGNS: Yes no meningeal signs SPEECH: speech normal Psych: COMMON NORMALS: mental status grossly normal, Normal thought process present, cooperative, normal affect, speech normal and activity/motor behavior normal APPEARANCE: Yes well kempt SPEECH: Yes normal speech THOUGHT PROCESS: Normal thought process present Skin: COMMON NORMALS: no rashes or lesions noted, turgor normal, no jaundice, no petechiae and no mottling GENERAL SKIN EXAM: no rashes or lesions noted and turgor normal Course Vital Signs: Vital signs: Vital Signs Temperature 99.4 F 09/25/19 17:28 Pulse Rate 85 09/25/19 20:27 Respiratory Rate 27 H 09/25/19 20:27 Blood Pressure 198/88 09/25/19 20:27 Pulse Oximetry 97 09/25/19 20:27 MDM - SOB/Dyspnea MDM Narrative: Medical decision making narrative: The patient clinically looks more like a congestive heart failure exacerbation but after reviewing the case with Dr. Peterson hospitalist he is conferred with the head of the hospitalist department Dr. Reyna and they would like the patient transferred back to [facility] so the patient can be monitored from a covert perspective as well. The patient agrees to this plan as well. I reviewed the case with Dr. Peterson and he agrees accept the patient likely to the ER where she will be repeat COVID tested but then disposition to what floor at the hospital will be made from there. Currently the patient is not in respiratory distress and shows no sign of fatigue. She is diuresing well and her blood pressure is greatly improved with the nitroglycerin paste. Lab Data: Attestation: I reviewed the patient's lab results. Labs: Lab Results 09/25/19 09/25/19 09/25/19 Range/Units 18:15 18:29 18:47 WBC 18.9 H (4.0-10.0) 10^3/ uL RBC 3.70 L (4.1-5.3) 10^6/u L Hgb 9.8 L (11.5-15.3) g/dL Hct 32.3 L (37.0-47.0) % MCV 87.3 (81-99) fL MCH 26.5 L (28.0-34.0) pg MCHC 30.3 (30.0-36.0) g/dL RDW 18.3 H (12.1-15.1) % Plt Count 277 (130-400) 10^3/c mm MPV 11.2 H (7.4-10.4) fL Neut % (Auto) 91.5 % Lymph % (Auto) 2.4 % [place] % (Auto) 4.9 % Eos % (Auto) 0.3 % Baso % (Auto) 0.2 % Neut # (Auto) 17.3 H (1.8-7.7) 10^3/u L Lymph # (Auto) 0.5 L (0.8-4.8) 10^3/u L [place] # (Auto) 0.9 (0.2-0.9) 10^3/u L Eos # (Auto) 0.1 (0.0-0.8) 10^3/u L Baso # (Auto) 0.0 (0.0-0.1) 10^3/u L Nucleated RBC % (a uto) 0 % Nucleated RBCs # 0.0 /100WBC PT (10.5-13.3) SECO NDS INR (0.8-1.2) Specimen Type Arterial Sample Site Radial, left ABG pH 7.50 H (7.35-7.45) ABG pCO2 39.5 (35-45) mmHg ABG pO2 90.6 (80.0-100.0) mmH g ABG HCO3 30.5 H (22-26) mmol/L ABG O2 Saturation 98.0 ABG Base Excess 6.7 H (-2.0-2.0) mmol/ L [employer] Test Pos A-a O2 Gradient 57.2 H (5-10) mmHg Hematocrit 30.3 L (37-47) % Hgb O2 Saturation 95.3 (95-100) % Carboxyhemoglobin 1.5 (0.4-20.1) %THgb Methemoglobin 1.2 (0.4-1.5) % Total Hemoglobin 9.9 L (12-16) g/dL Sodium 138.0 (131-143) mmol/L Potassium 3.1 L (3.5-5.0) mmol/L Glucose 331.0 H (70-115) mg/dL Ionized Calcium 1.1 (1.1-1.4) mmol/L O2 Delivery Device Nc O2 Liters/Min 2.0 % FiO2 28.0 % Supervisor [employer] ID ed Chloride (98-107) mmol/L Carbon Dioxide (22-29) mmol/L Anion Gap (5-19) BUN (8-23) mg/dL Creatinine (0.5-0.9) mg/dL Calculated Osmolal ity (285-295) mOsm/k g Lactic Acid 1.0 (0.5-2.2) mmol/L Calcium (8.5-10.5) mg/dL Magnesium (1.7-2.3) mg/dL Total Bilirubin (0.15-1.2) mg/dL AST (0-32) U/L ALT (0-33) U/L Alkaline Phosphata se (35-105) IU/L Troponin T Baselin e (0-10) ng/L NT-Pro-B Natriuret Pep (0-450) pg/mL Total Protein (6.6-8.7) g/dL Albumin (3.5-5.2) g/dL Globulin (1.3-4.6) g/dL 09/25/19 09/25/19 09/25/19 Range/Units 18:47 18:47 18:47 WBC (4.0-10.0) 10^3/ uL RBC (4.1-5.3) 10^6/u L Hgb (11.5-15.3) g/dL Hct (37.0-47.0) % MCV (81-99) fL MCH (28.0-34.0) pg MCHC (30.0-36.0) g/dL RDW (12.1-15.1) % Plt Count (130-400) 10^3/c mm MPV (7.4-10.4) fL Neut % (Auto) % Lymph % (Auto) % [place] % (Auto) % Eos % (Auto) % Baso % (Auto) % Neut # (Auto) (1.8-7.7) 10^3/u L Lymph # (Auto) (0.8-4.8) 10^3/u L [place] # (Auto) (0.2-0.9) 10^3/u L Eos # (Auto) (0.0-0.8) 10^3/u L Baso # (Auto) (0.0-0.1) 10^3/u L Nucleated RBC % (a uto) % Nucleated RBCs # /100WBC PT 14.30 H (10.5-13.3) SECO NDS INR 1.08 (0.8-1.2) Specimen Type Sample Site ABG pH (7.35-7.45) ABG pCO2 (35-45) mmHg ABG pO2 (80.0-100.0) mmH g ABG HCO3 (22-26) mmol/L ABG O2 Saturation ABG Base Excess (-2.0-2.0) mmol/ L [facility] Test A-a O2 Gradient (5-10) mmHg Hematocrit (37-47) % Hgb O2 Saturation (95-100) % Carboxyhemoglobin (0.4-20.1) %THgb Methemoglobin (0.4-1.5) % Total Hemoglobin (12-16) g/dL Sodium 135 L (131-143) mmol/L Potassium 3.4 L (3.5-5.0) mmol/L Glucose 323 H (70-115) mg/dL Ionized Calcium (1.1-1.4) mmol/L O2 Delivery Device O2 Liters/Min % FiO2 % Supervisor [employer] Station ID Chloride 92 L (98-107) mmol/L Carbon Dioxide 29 (22-29) mmol/L Anion Gap 17.4 (5-19) BUN 30 H (8-23) mg/dL Creatinine 1.6 H (0.5-0.9) mg/dL Calculated Osmolal ity 290 (285-295) mOsm/k g Lactic Acid (0.5-2.2) mmol/L Calcium 9.4 (8.5-10.5) mg/dL Magnesium 2.3 (1.7-2.3) mg/dL Total Bilirubin 0.4 (0.15-1.2) mg/dL AST 42 H (0-32) U/L ALT 27 (0-33) U/L Alkaline Phosphata se 117 H (35-105) IU/L Troponin T Baselin e 35 H (0-10) ng/L NT-Pro-B Natriuret Pep 4933 H (0-450) pg/mL Total Protein 6.9 (6.6-8.7) g/dL Albumin 3.8 (3.5-5.2) g/dL Globulin 3.1 (1.3-4.6) g/dL Imaging Data^: CXR: My impression: Cardiomegaly with pulmonary vascular congestion with moderate pleural effusions. EKG Data^: EKG 1: Attestation: I personally reviewed and interpreted this EKG as follows: EKG Interpretation Date: 09/25/19 EKG interpretation time: 18:05 Interpretation: Normal sinus rhythm at 94 beats a minute, nonspecific ST and T wave changes, LVH, otherwise no acute findings. EKG 2: Attestation: I personally reviewed and interpreted this EKG as follows: EKG Interpretation Date: 09/25/19 EKG interpretation time: 20:27 Interpretation: Normal sinus rhythm with a rate of 84 beats a minute, nonspecific ST and T wave changes. Discharge Plan Discharge Patient Disposition: Xfer Short-Term Hosp Clinical Impression: CHF (congestive heart failure) Qualifiers: Heart failure type: unspecified Heart failure chronicity: acute on chronic Qualified Code(s): I50.9 - Heart failure, unspecified Condition: Stable Referrals: Mic Dailey MD [Primary Care Provider] - Coding Level of Care Code ED Supervisor Scouring Pads for Chg Fwd Exam Comprehensive
--- NOTE | 2019-09-25 17:42 | XR_ITS ---
WS: [id number] PORTABLE CHEST HISTORY: dyspnea COMPARISON: 09/09/2019 Prior CABG. Mild interstitial edema without a focal pneumonia. There is pulmonary venous congestion. Small bilate ral pleural effusions and atelectasis at the lung bases. The effusions have slightly improved since t he prior study. Cardiac size: Mildly enlarged cardiac silhouette. Mediastinum/Aorta: Mild atherosclerosis aorta. No osseous abnormality seen. XR/XR chest 1V portable [id number] IMPRESSION: 1. Small bilateral pleural effusions, slightly improved since 09/09/2019. 2. Mild interstitial edema and mild CHF.
--- NOTE | 2019-09-25 17:43 | ECG_ITS ---
[facility] Test Date: 2019-09-25 Pat Name: Karolina Combs Department: Room: Gender: Female Television Technician: : 1940 Requested By: Georgie Mcfarland Order Number: [id number] Mariee MD: Vesna Goodson M.D. Measurements Intervals [place] Rate: 84 P: 129 MS: 148 QRS: 39 QRSD: 90 T: 94 QT: 377 QTc: 446 Interpretive Statements SINUS RHYTHM LEFT VENTRICULAR HYPERTROPHY AND ST-T CHANGE [VOLTAGE CRITERIA PLUS ST/T ABNORMALITY] Compared to ECG 09/09/2019 10:01:10 Left ventricular hypertrophy now present ST (T wave) deviation now present T-wave abnormality no longer present Possible ischemia no longer present Electronically Signed On 09-25-2019 20:44:58 CDT by Vesna Goodson M.D. [id number]
[2019-09-25] MEDS: albuterol 8 gm MDI 6 PUFF INHALATION (18:29)
[2019-09-25] MEDS: nitroglycerin 1 gm/inch oint Pkt 1 INCH TOPICAL (18:36)
[2019-09-25 18:39] LABS: ABG PCO2 39.5 mmHg (35-45); Alveolar-Arterial Oxygen Gradi 57.2 mmHg (5-10); Arterial Blood Gas Hematocrit 30.3 % (37-47); Base Excess ABG 6.7 mmol/L (-2.0-2.0); Blood Gas Allen Test Pos; Blood Gas Sample Site Radial, left; Blood Gas Sample Type Arterial; Carboxyhemoglobin 1.5 %THgb (0.4-20.1); HCO3 ABG 30.5 mmol/L (22-26); HGB O2 Sat 95.3 % (95-100); Ionized Calcium Level - ABG 1.1 mmol/L (1.1-1.4); Methemoglobin 1.2 % (0.4-1.5); Oxygen Device NC; PO2 ABG 90.6 mmHg (80.0-100.0); Potassium Level - ABG 3.1 mmol/L (3.5-5.0); Total Hemoglobin 9.9 g/dL (12-16)
[2019-09-25] MEDS: FUROsemide 10 mg/mL SDV 4mL 40 MG IVP (18:53)
[2019-09-25 18:54] LABS: Basophils % 0.2 %; Eosinophils # 0.1 10^3/uL (0.0-0.8); Eosinophils % 0.3 %; Hematocrit 32.3 % (37.0-47.0); Hemoglobin 9.8 g/dL (11.5-15.3); Lymphocytes # 0.5 10^3/uL (0.8-4.8); Lymphocytes % 2.4 %; Mean Corpuscular HGB Conc 30.3 g/dL (30.0-36.0); Mean Corpuscular Hemoglobin 26.5 pg (28.0-34.0); Mean Corpuscular Volume 87.3 fL (81-99); Mean Platelet Volume 11.2 fL (7.4-10.4); Monocytes # 0.9 10^3/uL (0.2-0.9); Monocytes % 4.9 %; Neutrophils # 17.3 10^3/uL (1.8-7.7); Neutrophils % 91.5 %; Nucleated Red Blood Cells % 0 %; Platelet Count 277 10^3/cmm (130-400); Red Cell Distribution Width 18.3 % (12.1-15.1); White Blood Count 18.9 10^3/uL (4.0-10.0)
[2019-09-25 19:02] LABS: INR 1.08 (0.8-1.2)
--- NOTE | 2019-09-25 19:07 | PC.NURSE ---
Patient report received from SAMANTHA Vargas and care transferred to SAMANTHA Clement
[2019-09-25 19:13] LABS: Troponin(5th) Baseline 35 ng/L (0-10)
[2019-09-25 19:22] LABS: Alanine Aminotransferase 27 U/L (0-33); Albumin Level 3.8 g/dL (3.5-5.2); Alkaline Phosphatase 117 IU/L (35-105); Anion Gap 17.4 (5-19); Aspartate Amino Transferase 42 U/L (0-32); Blood Urea Nitrogen 30 mg/dL (8-23); Calcium 9.4 mg/dL (8.5-10.5); Carbon Dioxide 29 mmol/L (22-29); Chloride 92 mmol/L (98-107); Globulin 3.1 g/dL (1.3-4.6); Glucose 323 mg/dL (65-115); Magnesium 2.3 mg/dL (1.7-2.3); NT Pro B Type Natriuretic Pept 4933 pg/mL (0-450); Osmolality Calculated 290 mOsm/kg (285-295); Potassium 3.4 mmol/L (3.5-5.1); Sodium 135 mmol/L (136-145); Total Bilirubin 0.4 mg/dL (0.15-1.2); Total Protein 6.9 g/dL (6.6-8.7)
--- NOTE | 2019-09-25 19:43 | ECG_ITS ---
[facility] Test Date: 2019-09-25 Pat Name: Karolina Combs Department: Room: Gender: Female Photo Cartographer: : 1940 Requested By: Georgie Mcfarland Order Number: [id number] Kodi MD: Vesna Goodson M.D. Measurements Intervals [place] Rate: 84 P: 101 ME: 148 QRS: 48 QRSD: 92 T: 60 QT: 405 QTc: 481 Interpretive Statements SINUS RHYTHM WITH SINUS ARRHYTHMIA NONSPECIFIC ST & T-WAVE ABNORMALITY Compared to ECG 09/25/2019 18:05:04 T-wave abnormality now present Left ventricular hypertrophy no longer present ST (T wave) deviation no longer present Electronically Signed On 09-25-2019 20:52:02 CDT by Vesna Goodson M.D. [id number]
--- NOTE | 2019-09-25 20:21 | PC.NURSE ---
EKG done at 2020 and shown to ER doctor
[2019-09-25 20:46] LABS: Troponin 5 2HR 37.47 ng/L (0-10); Troponin 5 2HR Delta 2.47 ABS# (0-10)
[2019-09-25 21:22] LABS: Influenza A by IFA Negative (Negative); Influenza B by IFA Negative (Negative)
[2019-09-25 21:29] LABS: Bilirubin Urine Neg (NEGATIVE); Blood Urine Neg (Negative); Glucose Urine UA 4+ (Normal); Ketones Urine Negative (Negative); Leukocyte Esterase Urine Negative (Negative); Nitrate Urine Negative (Negative); Protein Urine 1+ (Negative); Specific Gravity, Urine 1.015 (1.005-1.030); Urine Appearance Hazy (CLEAR); Urine Color Yellow (Yellow); Urobilinogen Urine Norm (Negative); pH Urine 5 (5-7)
[2019-09-25 21:31] LABS: Add Urine Culture? No; Amorphous Sediment Urine 2+; Bacteria Urine TRACE; RBC Urine 0-4 /hpf (0-2); Squamous Epithelial Cell Urine 0-4 (0-5)
== END 2019-09-25 23:17 | disposition short-term general hospital (02) ==
PROVIDERS: Emergency Provider Emergency Medicine; PCP Family Medicine
DX: I11.0 Hypertensive heart disease with heart failure (principal); I50.9 Heart failure, unspecified; I25.10 Atherosclerotic heart disease of native coronary artery without angina pectoris; E11.9 Type 2 diabetes mellitus without complications; Z95.1 Presence of aortocoronary bypass graft; Z87.891 Personal history of nicotine dependence
CPT/HCPCS: 12345; 36600; 71045; 80051; 80053; 81001; 82810; 83605; 83735; 83880; 83986; 84484; 85025; 85610; 87040; 87804; 93005; 94640; 96374; 96375; 99284; 99285; J1940; J3535